=== PATIENT | male | born 1980 | race Two or more races ===

== ENCOUNTER 2017-11-29 01:33 | Inpatient (IN) | payer MEDICAID ==
[2017-11-29] VITALS (28 sets, daily range): BP systolic 97–180; BP diastolic 55–126
[~2017-11-29] VITALS: Ht 175.3 cm; Wt 97.1 kg
--- NOTE | 2017-11-29 01:48 | NUR ---
POISON CONTROL CALLED. CASE REPORTED TO
--- NOTE | 2017-11-29 01:50 | NUR ---
CHRISS 82 FROM HOME C/O OVERDOSE, TAKING 6 PACKS OF RAT POISON, 60 PILLS OF NAPROXEN, 6 BOTTLES OF SMIRNOFF. +SI - HI. FIELD BS 157. PT IS AAOX4. PT NOTED TO BE TACHYPNIC, SHALLOW RESPIRATIONS, AND CRACKLES AUSCULTATED IN ALL LUNG MENDOZA. PT NOTED TO BE IN MILD DISTRESS. RESP EVEN AND LABORED. PT NOTED TO BE MILDLY DAMP. PT PLACED ON GRAPHIC DESIGN PROFESSOR AND POX. PT SAFETY AND COMFORT MEASURES IN PLACE. SI PRECAUTIONS IN PLACE. BEDSIDE FOR EVAL.
[2017-11-29] MEDS ORDERED: IV NS 0.9% 1,000 ML IV ONE (02:12)
[2017-11-29 02:16] LABS: BASOPHILS % (AUTO) 0.1 % (0.0-2.0); HEMATOCRIT 49 % (39-51); HEMOGLOBIN 16.6 g/dL (13.5-17.5); LYMPHOCYTES # (AUTO) 0.7 /CMM (0.8-4.8); LYMPHOCYTES % (AUTO) 4.2 % (20.0-44.0); MEAN CORPUSCULAR HEMOGLOBIN 32 PG (26.0-33.0); MEAN CORPUSCULAR HGB CONC 34 g/dl (31.0-36.0); MEAN CORPUSCULAR VOLUME 94 fL (80-96); MONOCYTES # (AUTO) 0.7 /CMM (0.1-1.30); MONOCYTES % (AUTO) 4.3 % (2.0-12.0); NEUTROPHILS # (AUTO) 14.5 /CMM (1.8-8.9); NEUTROPHILS % (AUTO) 91.4 % (43.0-81.0); PLATELET COUNT (AUTO) 281 /CMM (150-450); RDW COEFFICIENT OF VARIATION 13.2 (11.5-15.0); RED BLOOD CELL COUNT(AUTO) 5.22 MIL/uL (4.5-6.0); WHITE BLOOD COUNT (AUTO) 15.9 K/uL (4.3-11.0)
--- NOTE | 2017-11-29 02:17 | NUR ---
[employer] BEDSIDE WITH PT
[2017-11-29 02:31] LABS: INR 0.95 (0.87-1.13)
[2017-11-29 02:35] LABS: ALANINE AMINOTRANSFERASE 103 U/L (12-78); ALBUMIN 5.1 g/dL (3.4-5.0); ALCOHOL, BLOOD < 3 mg/dL (0-0); ALKALINE PHOSPHATASE 78 U/L (46-116); ASPARTATE AMINOTRANSFERASE 67 U/L (15-37); BILIRUBIN,DIRECT 0.1 mg/dL (0.0-0.2); BILIRUBIN,TOTAL 1.1 mg/dL (0.2-1.0); CALCIUM, SERUM 9.6 mg/dL (8.5-10.1); CARBON DIOXIDE 18 mmol/L (21-32); CHLORIDE 94 mmol/L (98-107); CREATININE 1.1 mg/dL (0.6-1.3); GLUCOSE 162 mg/dL (74-106); SODIUM SERUM 131 mmol/L (136-145); TOTAL PROTEIN, SERUM 8.7 g/dL (6.4-8.2); UREA NITROGEN, BLOOD 12 mg/dL (7-18)
[2017-11-29 02:36] LABS: POTASSIUM 2.8 mmol/L (3.5-5.1); SALICYLATE 0.8 mg/dL (2.8-20.0)
[2017-11-29 02:37] LABS: ACETAMINOPHEN 0 ug/ml (10-30)
[2017-11-29 02:42] LABS: THYROID STIMULATING HORMONE 0.222 uIU/mL (0.358-3.74)
[2017-11-29] MEDS ORDERED: POTASSIUM CHLORIDE 10 MEQ/50 ML PREMIXED IVPB FOR PERIPHERAL LINE IV ONE (03:00)
[2017-11-29] MEDS ORDERED: POTASSIUM CL. PREMIX PERIPHER. 50 ML ONE ×2 (03:00→04:02)
[2017-11-29] MEDS ORDERED: LABETALOL HCL IV 100MG VIAL ONE (03:27)
[2017-11-29] MEDS: LABETALOL 20 MG/4 ML VIAL IV ONE (03:36)
[2017-11-29 03:48] LABS: TROPONIN I 0.029 ng/mL (0.00-0.056)
[2017-11-29 04:34] LABS: APPEARANCE,URINE CLEAR (CLEAR); BILIRUBIN,URINE NEGATIVE (NEGATIVE); BLOOD, URINE 1+ Ery/uL (NEGATIVE); COLOR,URINE YELLOW (YELLOW); KETONES,URINE TRACE (NEGATIVE); LEUKOCYTE ESTERASE ,URINE NEGATIVE (NEGATIVE); NITRITE, URINE NEGATIVE (NEGATIVE); PROTEIN,URINE 1+ mg/dl (NEGATIVE); UGLUCOSE NEGATIVE (NEGATIVE); UROBILINOGEN,URINE 0.2 EU/dL (0.2)
[2017-11-29 04:44] LABS: BACTERIA,URINE Few /HPF (None Seen); MUCUS,URINE Few /LPF (None Seen); SQUAMOUS EPITHELIAL CELL,UR Rare /HPF (None Seen); WBC,URINE 0-2 /HPF (0-3)
[2017-11-29] MEDS ORDERED: MORPHINE SULFATE INJ 2 MG/ML DISP.SYRIN IV PRN (05:00)
[2017-11-29] MEDS ORDERED: MAG HYDROX/AL HYDROX/SIMETH 30 ML UDC PO PRN (05:00)
[2017-11-29] MEDS ORDERED: ONDANSETRON HCL/PF 4 MG/2 ML VIAL IVP PRN (05:00)
[2017-11-29] MEDS ORDERED: LORAZEPAM INJ 2 MG/ML VIAL IV PRN (05:00)
[2017-11-29] MEDS ORDERED: hydrALAZINE HCL IV 20 MG VIAL IV PRN (05:00)
[2017-11-29] MEDS ORDERED: ZOLPIDEM TARTRATE 5 MG TABLET PO PRN (05:00)
[2017-11-29] MEDS ORDERED: MAGNESIUM HYDROXIDE 30 ML UDC PO PRN (05:00)
[2017-11-29] MEDS ORDERED: HYDROCODONE/APAP 5/325MG 1 EACH TABLET PO PRN (05:00)
[2017-11-29] MEDS ORDERED: ACETAMINOPHEN 325 MG TABLET PO PRN (05:00)
[2017-11-29] MEDS ORDERED: Z GUARD REMEDY 2 OZ OINT TP PRN (05:00)
--- NOTE | 2017-11-29 05:05 | NUR ---
REPORT GIVEN TO SERA TRIPP FOR CHER.
--- NOTE | 2017-11-29 05:40 | NUR ---
[facility] RN INITIAL NOTE RECEIVED PT A/O X 1-2 ABLE TO VERBALIZE SOME NEEDS WITH EPISODES OF CONFUSION. ARRIVED ON ROOM AIR STATING HE COULDN'T BREATHE. PLACED ON O2 VIA NC AT 2LPM WITH AUDIBLE CRACKLES NOTED WITH TACHYPNEIC SHALLOW LABORED BREATHING. UPON AUSCULTATION BILATERAL CRACKLES NOTED. ABG STAT ORDERED WITH NO ABNORMAL READINGS NOTED. HOB ELEVATED. NO C/O ANY N/V NOTED. WITH GIRLFRIEND AT BEDSIDE. PT PLACED ON TELE WITH ST @ 105 ON THE MONITOR. PT HAS ACTIVE BOWEL SOUNDS IN ALL 4 QUADRANTS. NO C/O ANY PAIN OR DISCOMFORT WHEN PALPATING ABDOMEN. ABDOMEN SOFT AND NON TENDER. VELÁSQUEZ CATHETER INSERTED WITH CLEAR YELLOW URINE DRAINING. PT TOLERATED PROCEDURE WELL WITH NO A/R NOTED. PT HAS RAC 18G WITH NS @ 100ML/HR AND LFA 18G THAT IS CLEAN DRY INTACT AND PATENT WITH SALINE LOCK. BED IN LOW LOCK POSITION WITH RAILS UP X 2. CALL LIGHT WITHIN REACH WITH ALL SAFETY MEASURES ENSURED AND CARRIED OUT. WILL CONTINUE TO MONITOR PT.
[2017-11-29 05:45] LABS: ABG BASE EXCESS -6.7 mmol/L; ABG OXYGEN SATURATION 96.5 % (92.0-98.5); ABG PCO2 27.8 mmHg (35.0-45.0); ABG PH 7.389 (7.350-7.450); ABG PO2 89.6 mmHg (75.0-100.0); AaDO2 163.6 mmHg; COHb 0.2 % (0.5-1.5); MetHb 0.5 % (0.0-1.5); O2Hb 95.8 % (94.0-97.0); SITE, ABG Left Radial; VENT MODE, BG nasal cannula
--- NOTE | 2017-11-29 06:00 | NUR ---
RN NOTE PAGED DR ALEXIS. AWAITING CALL BACK.
--- NOTE | 2017-11-29 06:10 | NUR ---
RN NOTE SUCTIONED PT VIA NG WITH 150ML OUTPUT. PT TOLERATED PROCEDURE WELL. NO AUDIBLE CRACKLING NOTED. WILL CONTINUE TO MONITOR.
--- NOTE | 2017-11-29 06:15 | NUR ---
RN NOTE PAGED DR ALEXIS AGAIN. STILL AWAITING CALL BACK.
[2017-11-29 06:31] LABS: CALCIUM, SERUM 9.3 mg/dL (8.5-10.1); CREATININE 0.9 mg/dL (0.6-1.3); MAGNESIUM 1.6 mg/dL (1.8-2.4); POTASSIUM 3.2 mmol/L (3.5-5.1)
[2017-11-29] MEDS: IV NS 0.9% 1,000 ML IV PRN ×2 (06:38→16:39)
--- NOTE | 2017-11-29 07:00 | NUR ---
RN NOTE NOTED THAT PT STATED "I AM HOPELESS AND WILL TRY TO KILL MYSELF AGAIN". CHARGE NURSE NOTIFIED. AM RN PRESENT WHEN PT HAD SUICIDAL IDEATION.
--- NOTE | 2017-11-29 07:30 | NUR ---
RN NOTE GAVE REPORT TO AM RN FOR CONTINUITY OF CARE. GIRLFRIEND STILL AT BEDSIDE. MOTHER AND SISTER NOTIFIED. MOTHER IS OUT OF TOWN AND SISTER IS EN ROUTE TO HOSPITAL. ALL SAFETY MEASURES IN PLACED AND CARRIED OUT. SUICIDAL PRECAUTION CARRIED OUT. ENDORSED REPORT TO AM RN SHIVAM FOR CONTINUITY OF CARE.
--- NOTE | 2017-11-29 08:00 | NUR ---
ICU/RN INITIAL NOTES,AM RECEIVED REPORT FROM NIGHT NURSE. PT ON SIMPLE MASK, 5LITERS, SOB STILL NOTED DESPITE THAT PT IS MAINTAINING O2 SAT >95%. ABD DONE, WNL, PT DIAPHORETIC AND TACHYPNEIC. PT ON TELE, SINUS TACK. GIRLFRIEND AT BEDSIDE. PT AAO 1-2, PERIODS ON CONFUSION NOTED. PIV'S PATENT AND INTACT, NO S/S OF INFECTION OR INFILTRATION NOTED, IV FLUIDS INFUSING ORDERED. VELÁSQUEZ IN PLACE, DRAINING YELLOW URINE. LOW POTASSIUM NOTED, WILL INFORM PRIMARY TO REPLACE. ALL NEEDS WILL BE ATTENDED TO, SAFETY MEASURES TAKEN, BED IN LOW POSITION, SIDE RIALS UP, CALL LIGHT WITHIN REACH.
[2017-11-29] MEDS ORDERED: MORPHINE SULFATE INJ 4 MG/ML DISP.SYRIN IV PRN (08:26)
[2017-11-29] MEDS: AMLODIPINE BESYLATE 5 MG TABLET PO SCH (09:00)
--- NOTE | 2017-11-29 09:10 | NUR ---
ICU/RN: PER DR. WISE PT TRANSFERRED TO ICU FOR TACHYPNEA, CONTINUING TO BE DIAPHORETIC AND DIFFICULTY BREATHING. WILL CONTINUE TO MONITOR AND ASSESS.
[2017-11-29] MEDS ORDERED: CLONIDINE HCL 0.1MG/24H PTWK 1 EA PATCH TD SCH (10:00)
[2017-11-29] MEDS: Thiamine 100 MG in IV D5W 50 ML IV SCH (10:07)
--- NOTE | 2017-11-29 10:30 | NUR ---
ICU/RN: PT PLACED ON BIPAP PER MD ORDERS WITH SETTINGS ORDERED. NO ACUTE DISTRESS. WILL CONTINUE TO MONITOR AND ASSESS
[2017-11-29] MEDS: PIPERACILLIN /TAZOBACTAM 3.375 G in IV D5W 50 ML IV SCH ×3 (11:20→23:46)
[2017-11-29] MEDS: Magnesium 1GM/D5W 100ML PREMIX 100 ML IV SCH ×2 (12:46→14:16)
[2017-11-29] MEDS ORDERED: LABETALOL 20 MG/4 ML VIAL IV ONE (14:00)
[2017-11-29] MEDS ORDERED: PANTOPRAZOLE 40 MG VIAL IV SCH (14:00)
[2017-11-29] MEDS: POTASSIUM CL. PREMIX PERIPHER. 50 ML IV SCH ×4 (14:16→17:45)
--- NOTE | 2017-11-29 17:15 | NUR ---
ICU/RN: SPOKE TO SUSAN FROM POISON CONTROL. NEW RECOMMENDATIONS RECEIVED TO CHECK INR LEVEL Q8 HOURS.UPDATE ON PT'S CONDITION GIVEN. WILL CONTINUE TO MONITOR AND ASSESS.
[2017-11-29 18:15] LABS: ABG BASE EXCESS -6.2 mmol/L; ABG OXYGEN SATURATION 97.3 % (92.0-98.5); ABG PCO2 21.7 mmHg (35.0-45.0); ABG PH 7.456 (7.350-7.450); ABG PO2 96.1 mmHg (75.0-100.0); AaDO2 92.3 mmHg; COHb 0.4 % (0.5-1.5); MetHb 0.8 % (0.0-1.5); O2Hb 96.1 % (94.0-97.0); SITE, ABG Right Radial; VENT MODE, BG IPAP 15 / EPAP 5
--- NOTE | 2017-11-29 18:22 | NUR ---
PT. IS AWAKE AND FOLLOW COMMANDS, PLACED ON 3 LPM O2 FLOW SPO2 98% RR 2OBPM Addendum: 11/29/17 at 1823 by JANET RAY RT Amended: Links added.
--- NOTE | 2017-11-29 18:43 | NUR ---
ICU/RN: PT OFF BIPAP, NOW ON 3LITERS NASAL CANULA. NO DISTRESS. WILL CONTINUE TO MONITOR AND ASSESS
--- NOTE | 2017-11-29 18:58 | NUR ---
ICU/RN: ENDING NOTES,AM REPORT WILL BE ENDORSED TO NIGHT NURSE. PT ALERT, FOLLOWING COMMANDS, YET A LITTLE LETHARGIC. PT NOW ON 3LITERS NASAL CANULA NO ACUTE DISTRESS NOTED. PT CONTINUES TO BE SINUS TACHY ON TELE, 130. VELÁSQUEZ DRAINING YELLOW URINE. ALL NEEDS ATTENDED TO, SAFETY MEASURES TAKEN, BED IN LOW POSITION. PT WILL CONTINUE TO BE 1:1 FOR SAFETY. SIDE RAILS UP, CALL LIGHT WITHIN REACH.
[2017-11-29 19:07] LABS: INR 1.2 (0.87-1.13)
--- NOTE | 2017-11-29 20:00 | NUR ---
Received patient with eyes closed open eyes spontaneously when name called.Oriented x 3.Patient denies any discomfort at present.VS stable.SR 76 [address] 115-120'S.Respiration even and unlabored.O2 3L NC on spo2 100%.NPO status with IV hydration in progress site intact.Bed mobility independent.Safety precaution maintained with 1:1 SITTER at bedside at all times and Family at bedside.
[2017-11-30] VITALS (24 sets, daily range): BP systolic 105–142; BP diastolic 45–94
--- NOTE | 2017-11-30 | NUR ---
Patient resting.vs remains stable.No distress noted.
[2017-11-30 00:19] LABS: INR 1.28 (0.87-1.13)
[2017-11-30] MEDS: IV NS 0.9% 1,000 ML IV PRN ×3 (01:05→20:52)
[2017-11-30 04:15] LABS: BASOPHILS % (AUTO) 0.1 % (0.0-2.0); EOSINOPHILS % (AUTO) 0.1 % (0.0-6.0); HEMATOCRIT 44 % (39-51); HEMOGLOBIN 15.1 g/dL (13.5-17.5); LYMPHOCYTES # (AUTO) 1.1 /CMM (0.8-4.8); LYMPHOCYTES % (AUTO) 7.9 % (20.0-44.0); MEAN CORPUSCULAR HEMOGLOBIN 32 PG (26.0-33.0); MEAN CORPUSCULAR HGB CONC 35 g/dl (31.0-36.0); MEAN CORPUSCULAR VOLUME 93 fL (80-96); MONOCYTES # (AUTO) 0.3 /CMM (0.1-1.30); MONOCYTES % (AUTO) 2.1 % (2.0-12.0); NEUTROPHILS # (AUTO) 12.9 /CMM (1.8-8.9); NEUTROPHILS % (AUTO) 89.8 % (43.0-81.0); PLATELET COUNT (AUTO) 242 /CMM (150-450); RDW COEFFICIENT OF VARIATION 13.8 (11.5-15.0); RED BLOOD CELL COUNT(AUTO) 4.69 MIL/uL (4.5-6.0); WHITE BLOOD COUNT (AUTO) 14.4 K/uL (4.3-11.0)
[2017-11-30 04:27] LABS: CALCIUM, SERUM 8.9 mg/dL (8.5-10.1); CREATININE 1.2 mg/dL (0.6-1.3); MAGNESIUM 2.3 mg/dL (1.8-2.4); PHOSPHORUS 4.3 mg/dL (2.5-4.9); POTASSIUM 3.6 mmol/L (3.5-5.1)
[2017-11-30] MEDS: PIPERACILLIN /TAZOBACTAM 3.375 G in IV D5W 50 ML IV SCH ×4 (05:40→23:19)
--- NOTE | 2017-11-30 06:00 | NUR ---
No significant change noted during the shift.AM care done.VS remains stable.1:1 Sitter at bedside at all times.All needs attended.
--- NOTE | 2017-11-30 07:38 | NUR ---
ICU/RN: INITIAL NOTES,AM RECEIVED REPORT FROM NIGHT NURSE. PT ALERT, AWAKE, FOLLOWS COMMANDS. RESTING COMFORTABLY IN BED. PT ON NASAL CANULA, 3 LITERS, TOLERATING WELL, NO ACUTE DISTRESS NOTED. SINUS ON TELE, 71. VELÁSQUEZ IN PLACE, DRAINING YELLOW URINE. 1:1 SITTER AT BEDSIDE. ALL NEEDS WILL BE ADDRESSED, SAFETY MEASURES TAKEN, BED IN LOW POSITION, SIDE RAILS UP, CALL LIGHT WITHIN REACH. WILL CONTINUE CARE.
[2017-11-30] MEDS ORDERED: MORPHINE SULFATE INJ 2 MG/ML DISP.SYRIN IV PRN (07:45)
[2017-11-30 08:30] LABS: INR 1.24 (0.87-1.13)
[2017-11-30] MEDS: AMLODIPINE BESYLATE 5 MG TABLET PO SCH (08:49)
[2017-11-30] MEDS: Thiamine 100 MG in IV D5W 50 ML IV SCH (10:51)
--- NOTE | 2017-11-30 11:20 | NUR ---
ICU/RN: SPOKE TO SUSAN FROM POISON CONTROL, UPDATES GIVEN REGARDING PT STATUS AND LABS. RECOMMENDATIONS GIVEN, WILL INFORM MD FOR ORDERS IF APPROPRIATE.
[2017-11-30] MEDS: PANTOPRAZOLE 40 MG VIAL IV SCH (13:27)
[2017-11-30 16:52] LABS: ALBUMIN 2.9 g/dL (3.4-5.0); BILIRUBIN,TOTAL 0.9 mg/dL (0.2-1.0); CALCIUM, SERUM 8.1 mg/dL (8.5-10.1); POTASSIUM 3.7 mmol/L (3.5-5.1); TOTAL PROTEIN, SERUM 6.3 g/dL (6.4-8.2)
--- NOTE | 2017-11-30 17:00 | NUR ---
ICU/RN: ORDERS RECEIVED TO TRANSFER PT TO [facility] WITH 1:1 SITTER. PT STABLE, VSS, NO DISTRESS. WILL CONTINUE TO MONITOR. AWAITING ROOM IN [facility]. WILL CONTINUE CARE.
[2017-11-30 17:21] LABS: INR 1.15 (0.87-1.13)
--- NOTE | 2017-11-30 19:00 | NUR ---
ICU/RN: PT TRANSFERRED TO TD 118-1, REPORT ENDORSED TO SERA MCMILLAN. ALL BELONGINGS AND MEDICATIONS TRANSFERRED WITH PT. VSS. FAMILY AT BEDSIDE.
--- NOTE | 2017-11-30 20:00 | NUR ---
RN INITIAL NOTES RECEIVED BEDSIDE REPORT FROM ICU NURSE. PT WAS TRANSFERRED TO [facility] 118-1. PT IS IN STABLE CONDITION. PT IS ALERT, AWAKE, FOLLOWS COMMANDS. RESTING COMFORTABLY IN BED. PT ON NASAL CANULA, 3 LITERS, TOLERATING WELL, NO ACUTE DISTRESS NOTED. SINUS ON TELE, 73. VELÁSQUEZ IN PLACE, DRAINING YELLOW URINE. 1:1 SITTER AT BEDSIDE.FAMILY AND FRIENDS AT BEDSIDE. ALL SAFETY MEASURES TAKEN, BED IN LOW POSITION, SIDE RAILS UP, CALL LIGHT WITHIN REACH. WILL CONTINUE CARE
[2017-12-01] VITALS (7 sets, daily range): BP systolic 96–138; BP diastolic 63–85
[2017-12-01] MEDS: PIPERACILLIN /TAZOBACTAM 3.375 G in IV D5W 50 ML IV SCH ×4 (06:10→23:33)
[2017-12-01] MEDS: IV NS 0.9% 1,000 ML IV PRN ×2 (06:11→18:09)
--- NOTE | 2017-12-01 06:52 | NUR ---
RN ENDING NOTES PT NOW ON 3LITERS NASAL CANULA NO ACUTE DISTRESS NOTED. PT SR 73 ON THE MONITOR. VELÁSQUEZ DRAINING YELLOW URINE. ALL NEEDS ATTENDED TO, SAFETY MEASURES TAKEN, BED IN LOW POSITION. PT WILL CONTINUE TO BE 1:1 FOR SAFETY. SIDE RAILS UP, CALL LIGHT WITHIN REACH.
--- NOTE | 2017-12-01 07:30 | NUR ---
COMPOUNDING ASSISTANT INITIAL NOTES: RECEIVED PT IN BED SLEEPING BUT EASY TO AROUSE. FAMILY AT BEDSIDE AT THIS TIME. 1:[address] ORDERED FOR SAFETY. ON 02 VIA NC AT 2LPM, NO SOB NOTED, SATURATING 100%. PT A&O X3. ON TELE MONITOR SINUS RHYTHM 61. VELÁSQUEZ IN PLACE, DRAINING CLEAR YELLOW URINE. SKIN INTACT. ON CARDIAC LOW FAT LOW CHOLESTEROL 2G SODIUM DIET TOLERATED. IV TO LFA AND RAC, BOTH PATENT AND IN TACT. PT DENIES ANY PAIN OR DISCOMFORT AT THIS TIME. BED IN LOW LOCKED POSITION, CALL LIGHT WITHIN REACH. PLAN OF CARE DISCUSSED WITH PT AND FAMILY. WILL CONTINUE TO MONITOR.
[2017-12-01] MEDS: THIAMINE HCL 100 MG TABLET PO SCH (08:15)
[2017-12-01] MEDS: AMLODIPINE BESYLATE 5 MG TABLET PO SCH (08:15)
--- NOTE | 2017-12-01 09:47 | NUR ---
SHIRT PRESSER NOTES: GIRLFRIEND AND MOTHER AT BEDSIDE, PT RESTING COMFORTABLY. DENIES ANY SUICIDAL IDEATION AT THIS TIME. 1:[address] WILL CONTINUE TO MONITOR.
--- NOTE | 2017-12-01 11:00 | NUR ---
METAL PATTERN MAKER NOTES: DR FOWLER AT BEDSIDE TO SEE PT.
[2017-12-01 13:36] LABS: BASOPHILS # (AUTO) 0.1 /CMM (0.0-0.2); BASOPHILS % (AUTO) 1.2 % (0.0-2.0); EOSINOPHILS % (AUTO) 1.4 % (0.0-6.0); HEMATOCRIT 40 % (39-51); HEMOGLOBIN 13.8 g/dL (13.5-17.5); LYMPHOCYTES # (AUTO) 2.1 /CMM (0.8-4.8); MEAN CORPUSCULAR HEMOGLOBIN 32 PG (26.0-33.0); MEAN CORPUSCULAR HGB CONC 34 g/dl (31.0-36.0); MEAN CORPUSCULAR VOLUME 93 fL (80-96); MONOCYTES # (AUTO) 0.8 /CMM (0.1-1.30); MONOCYTES % (AUTO) 7.1 % (2.0-12.0); NEUTROPHILS # (AUTO) 8.2 /CMM (1.8-8.9); NEUTROPHILS % (AUTO) 72.3 % (43.0-81.0); PLATELET COUNT (AUTO) 239 /CMM (150-450); RDW COEFFICIENT OF VARIATION 14.2 (11.5-15.0); RED BLOOD CELL COUNT(AUTO) 4.32 MIL/uL (4.5-6.0); WHITE BLOOD COUNT (AUTO) 11.4 K/uL (4.3-11.0)
[2017-12-01 13:48] LABS: CALCIUM, SERUM 8.5 mg/dL (8.5-10.1); CREATININE 0.9 mg/dL (0.6-1.3); POTASSIUM 3.5 mmol/L (3.5-5.1)
[2017-12-01 13:51] LABS: INR 1.02 (0.87-1.13)
[2017-12-01] MEDS: PANTOPRAZOLE 40 MG VIAL IV SCH (14:02)
--- NOTE | 2017-12-01 15:00 | NUR ---
CRUSHER FEEDER NOTES: JOHANNA HUMMEL AT BEDSIDE TO SEE PT. PT NOTIFIED HIM OF NOTED BLOOD IN STOOL X1 WITH MOST RECENT BATHROOM USE. RECTAL EXAM DONE BY JOHANNA HUMMEL, NO NOTED BLEEDING BUT SMALL HEMORRHOID FELT. WITH NEW ORDER FOR OCCULT BLOOD SAMPLE AND TO BE SEEN BY DR. PATEL. NO OTHER BLEEDING NOTED.
--- NOTE | 2017-12-01 16:00 | NUR ---
DR PATEL AT BEDSIDE TO ASSESS PT. PER , CONTINUE TO MONITOR PT FOR FURTHER EPISODES OF BLOOD IN STOOL. AWAITING ANOTHER BM FOR OCCULT BLOOD SAMPLE TO BE COLLECTED. PT MADE AWARE. WILL CONTINUE TO MONITOR
--- NOTE | 2017-12-01 18:30 | NUR ---
SPEECH AND HEARING DIRECTOR END NOTES: PT IN BED AWAKE, FAMILY VISITING AT BEDSIDE. DENIES ANY PAIN OR DISCOMFORT AT THIS TIME. DENIES SUICIDAL IDEATION AT THIS TIME. O2 VIA NC AT 2LPM, SATURATING WELL AND NO SOB NOTED. IV TO RAC PATENT AND CONNECTED TO IV FLUIDS ORDERED. VELÁSQUEZ CATH IN PLACE DRAINING CLEAR YELLOW URINE. NO BM FOR OCCULT BLOOD SAMPLE, WILL ENDORSE TO PM SHIFT TO MONITOR FOR BLOOD IN STOOL. ALL DUE MEDS GIVEN ORDERED, VS REMAIN STABLE. WILL ENDORSE TO PM SHIFT FOR CONTINUITY OF CARE.
--- NOTE | 2017-12-01 19:20 | NUR ---
FLAME BURNER NOTE PATIENT RECEIVED RESTING COMFORTABLY IN BED, AOX3, SPEECH CLEAR, NO S/SX OF RESPIRATORY OR CARDIAC DISTRESS, ON 2L O2 VIA NC, TELE SR, DENIES PAIN, SKIN KEPT CLEAN AND DRY, LFA #18G SL, PATENT FLUSHING WELL, SITE CDI, RAC #18G WITH NS AT 100ML/HR, PATENT FLUSHING WELL, SITE CDI, SAFETY MAINTAINED AT ALL TIMES, CALL LIGHT WITHIN REACH, BED IN LOW LOCKED POSITION, WILL CONTINUE TO MONITOR FOR ANY CHANGES IN CONDITION.
[2017-12-02] VITALS: BP 132/86
[2017-12-02 04:00] VITALS: BP 127/83
[2017-12-02] MEDS: IV NS 0.9% 1,000 ML IV PRN (05:55)
[2017-12-02] MEDS: PIPERACILLIN /TAZOBACTAM 3.375 G in IV D5W 50 ML IV SCH (05:56)
--- NOTE | 2017-12-02 07:30 | NUR ---
CURATOR HORTICULTURAL MUSEUM INITIAL NOTES: RECEIVED PT IN BED AWAKE, A&O X3 WITH GIRLFRIEND AT BEDSIDE. PT DENIES ANY PAIN OR DISCOMFORT AT THIS TIME. ON O2 VIA NC AT 2LPM, NO SOB OR RESPIRATORY DISTRESS NOTED. ON TELE MONITOR SR, DENIES CHEST PAIN. VELÁSQUEZ CATH IN PLACE DRAINING CLEAR YELLOW URINE. NO BM REPORTED SINCE SHEET HEATER HELPER, WILL MONITOR FOR OCCULT BLOOD SAMPLE TO BE TAKEN. PT AWARE. IV TO LFA AND RAC, BOTH PATENT AND INTACT. IV FLUIDS CONNECTED TO RAC AND RUNNING ORDERED. BED IN LOW LOCKED POSITION, CALL LIGHT WITHIN REACH. PLAN OF CARE DISCUSSED WITH PT AND GF. WILL CONTINUE TO MONITOR.
[2017-12-02 08:00] VITALS: BP 133/87
[2017-12-02] MEDS: THIAMINE HCL 100 MG TABLET PO SCH (08:29)
[2017-12-02 08:30] VITALS: BP 133/87
[2017-12-02] MEDS: AMLODIPINE BESYLATE 5 MG TABLET PO SCH (08:30)
[2017-12-02 08:37] LABS: BASOPHILS % (AUTO) 0.3 % (0.0-2.0); EOSINOPHILS % (AUTO) 1.8 % (0.0-6.0); HEMATOCRIT 41 % (39-51); LYMPHOCYTES # (AUTO) 2.2 /CMM (0.8-4.8); LYMPHOCYTES % (AUTO) 20.5 % (20.0-44.0); MEAN CORPUSCULAR HEMOGLOBIN 32 PG (26.0-33.0); MEAN CORPUSCULAR HGB CONC 34 g/dl (31.0-36.0); MEAN CORPUSCULAR VOLUME 94 fL (80-96); MONOCYTES # (AUTO) 0.7 /CMM (0.1-1.30); MONOCYTES % (AUTO) 6.5 % (2.0-12.0); NEUTROPHILS # (AUTO) 7.5 /CMM (1.8-8.9); NEUTROPHILS % (AUTO) 70.9 % (43.0-81.0); PLATELET COUNT (AUTO) 255 /CMM (150-450); RDW COEFFICIENT OF VARIATION 13.7 (11.5-15.0); RED BLOOD CELL COUNT(AUTO) 4.41 MIL/uL (4.5-6.0); WHITE BLOOD COUNT (AUTO) 10.5 K/uL (4.3-11.0)
--- NOTE | 2017-12-02 09:30 | NUR ---
JOHANNA HUMMEL AT BEDSIDE TO ASSESS PT. PER JOHANNA, MAY DISCHARGE HOME TODAY. PT AWARE AND FAMILY AT BEDSIDE TO TAKE HIM HOME WHEN READY.
--- NOTE | 2017-12-02 11:30 | NUR ---
DISCHARGE NOTES: PT DISCHARGED HOME WITH GIRLFRIEND AND MOM. ALL BELONGINGS RETURNED TO PT, BELONGINGS FORM SIGNED AND PLACED IN CHART. PT EDUCATION GIVEN TO PT AND DISCUSSED WITH PT AND FAMILY. PT UNDERSTANDS PLAN ON CARE, TO FOLLOW MEDICATION ORDERS AND FOLLOW UP WITH PCP WITHIN ONE WEEK, WELL PSYCH. RX OF MIRTAZAPINE GIVEN TO PT, PT UNDERSTANDS HOW TO TAKE MEDICATION, NO FURTHER QUESTIONS FROM PT. DISCHARGE SUMMARY SIGNED AND PLACED IN CHART. VELÁSQUEZ CATHETER REMOVED, PT ABLE TO URINATE AND HAVE A BM ON HIS OWN IN THE TOILET. NO COMPLICATIONS NOTED. PT DENIES ANY FURTHER SUICIDAL THOUGHTS OR IDEATION, UNDERSTANDS THE CONSEQUENCES OF HIS PREVIOUS ACTIONS. 2 IVS REMOVED, MINIMAL BLEEDING NOTED. PRESSURE DRESSING IN PLACE. ID BAND REMOVED PRIOR TO DEPARTURE. PT SAFELY WALKING OUT OF UNIT WITH MOM AND GIRLFRIEND.
== END 2017-12-02 11:45 | disposition home or self-care (01) | DRG 812 ==
LOC: ER 01:36 → TELE-TD 04:44 → ICU 09:19 → TELE1 11-30 19:02
PROVIDERS: ADMIT Internal Medicine; ATTEND Internal Medicine
PROC: 5A09357 Assistance with Respiratory Ventilation, Less than 24 Consecutive Hours, Continuous Positive Airway Pressure (ICD-10-PCS; principal; 2017-11-29)
DX: T39.312A Poisoning by propionic acid derivatives, intentional self-harm, initial encounter (principal); J96.00 Acute respiratory failure, unspecified whether with hypoxia or hypercapnia; G92 Toxic encephalopathy; F33.2 Major depressive disorder, recurrent severe without psychotic features; T60.4X2A Toxic effect of rodenticides, intentional self-harm, initial encounter; Y92.009 Unspecified place in unspecified non-institutional (private) residence as the place of occurrence of the external cause; D72.829 Elevated white blood cell count, unspecified; E87.1 Hypo-osmolality and hyponatremia; F10.239 Alcohol dependence with withdrawal, unspecified; E66.9 Obesity, unspecified; I10 Essential (primary) hypertension; Z68.31 Body mass index [BMI] 31.0-31.9, adult; Z81.8 Family history of other mental and behavioral disorders; R79.1 Abnormal coagulation profile; K64.9 Unspecified hemorrhoids; K59.00 Constipation, unspecified
CPT/HCPCS: 36415; 36600; 71045-TC; 80048-TC; 80053-TC; 80076-TC; 80305; 81000-TC; 82803-TC; 83735-TC; 84100-TC; 84439-TC; 84443-TC; 84484-TC; 85025-TC; 85610-TC; 85730-TC; 87081-TC; 93307-TC; A4606; A4624; C9113; G0480; J0360; J2060; J2270; J2543; J3411; J3475; J3480; J3490; J7030; J7060; Z7610